=== PATIENT | female | born 1985 | race Caucasian/White ===

== ENCOUNTER 2017-05-20 15:35 | Emergency (ER) | payer OTHER, SELFPAY ==
[2017-05-20 15:36] VITALS: BP 123/73; PULSE 81; RESP 14; TEMP 37; O2SAT 98; BMI 27.4
[2017-05-20 17:22] LABS: Apearance,Urine Clear (Clear); Color,Urine Yellow (Yellow)
[2017-05-20 17:23] LABS: Bilirubin,Urine Negative (Negative); Blood, Urine Negative (Negative); Glucose,Urine (UA) Negative (Negative); Ketones,Urine Negative (Negative); Protein,Urine 3+ (Negative); Specific Gravity, Urine 1.015 (1.005-1.030); UTC Leukocyte Esterase,Urine Negative (Negative); UTC Nitrate,Urine Negative (Negative); Urobilinogen,Urine 0.2 EU/dl (0.2)
--- NOTE | 2017-05-20 17:29 | HMH.EDUTC ---
[facility] [place] Disposition Clinical Impression: URI (upper respiratory infection) Disposition: Home, Self-Care Condition on Discharge: Good Instructions: Cough, DI for Cough -- Adult, Sinusitis (Alternative Therapy) Additional Instructions: Follow up with family doctor Make sure to drink plenty of water Return if needed Take medication as prescribed Prescriptions: Azithromycin [Z-Luis 250mg Tab] 250 mg PO UD DOSE PK #6 tab predniSONE [Prednisone 10mg Tab Dose-Pack] 10 mg PO UD DOSE PK #1 pack Referrals: Jerry Juarez MD [Physician] - Burke Mae MD [Physician] - Time of Disposition: 17:51 Medical Decision Making - Medical Records Medical records reviewed: Yes: I reviewed the patient's medical records. Vital Signs: 05/20/17 15:36 Temperature 98.6 F Temperature Source Oral Pulse Rate [Left Brachial] 81 Respiratory Rate 14 Blood Pressure [Right Arm] 123/73 Blood Pressure Mean [Right Arm] 89 Blood Pressure Source [Right Arm] Automatic Cuff Blood Pressure Position [Right Arm] Sitting 02 Sat by Pulse Oximetry 98 Oxygen Delivery Method Room Air - Lab Data Lab Results 05/20/17 17:11: Urine Color Yellow, Urine Appearance Clear, Urine pH 9.0 H, Ur Specific [place] 1.015, Urine Protein 3+, Urine Glucose (UA) Negative, Urine Ketones Negative, Urine Blood Negative, Urine Nitrate Negative, Urine Bilirubin Negative, Urine Urobilinogen 0.2, Ur Leukocyte Esterase Negative - Myron Inquiry Pt receiving controlled substance: No Myron was queried for this patient: No - Reevaluation(s) Time: 17:44 (Patient UA results reviewed and discussed with patient and advised to drink more water ) [facility] HPI - General Stated complaint: possible bronchitis Mode of Arrival: Ambulatory Source of Information: Patient Limitations: No Limitations Description of Symptoms (Recalled from Triage Doc. by RN): COUGH, WHEEZING, EAR PAIN, POSS UTI HEENT Symptoms (Recalled from RN notes): No Resp Symptoms (Recalled from RN notes): No Skin Symptoms (Recalled from RN notes): No MS Symptoms (Recalled from RN notes): No Functional Status (Recalled from RN notes): NA - History of Present Illness Provider Complaint: Patient states that she has been having cough and chest congestion along with pain in ears States that she has not been eating and drinking that well and noticed that she had some burning wtih urination and wanted to have her urine checked also States that at times she has periods of wheezing but she already has an inhaler for that and she has not been short of breath - Related Data Previous Rx's Medication Instructions Recorded Azithromycin [Z-Luis 250mg Tab] 250 mg PO UD DOSE PK #6 tab 05/20/17 predniSONE [Prednisone 10mg Tab 10 mg PO UD DOSE PK #1 pack 05/20/17 Dose-Pack] Allergies Allergy/AdvReac Type Severity Reaction Status Date / Time No Known Allergies Allergy Verified 05/20/17 16:48 - Worker's Comp Is this a Worker's Comp case?: No [facility] History I have reviewed the patient's past medical history: Yes Medical History: Denies:: Cancer, Diabetes Mellitus Type 1, Diabetes Mellitus Type 2, MRSA Amputation: No Fractures: No - *Social History Smoking Status: Current every day smoker Tobacco Type: cigarettes Alcohol Intake: never - Psychiatric History Expresses thoughts of harming self/others: None Suicide Plan Description: No Plan ROS Obtained: Yes All systems reviewed & no additional complaints - Respiratory Respiratory: Yes cough, No excessive phlegm production, No coughing up blood, No pain with cough, Yes wheezing - Genitourinary Male Genitourinary: Reports urinary urgency Physical Exam - General General appearance: alert, in no apparent distress - Expanded ENT Exam Nose exam: Present: sinus tenderness Comment: Throat red, irritated drainage noted with tenderness noted maxillary sinuses - Respiratory Respiratory exam: Present: normal lung sounds bilaterally. Absent: re
--- NOTE | 2017-05-20 17:42 | ED_ITS ---
[facility] [place] Disposition Clinical Impression: URI (upper respiratory infection) Disposition: Home, Self-Care Condition on Discharge: Good Instructions: Cough, DI for Cough -- Adult, Sinusitis (Alternative Therapy) Additional Instructions: Follow up with family doctor Make sure to drink plenty of water Return if needed Take medication as prescribed Prescriptions: Azithromycin [Z-Luis 250mg Tab] 250 mg PO UD DOSE PK #6 tab predniSONE [Prednisone 10mg Tab Dose-Pack] 10 mg PO UD DOSE PK #1 pack Referrals: Jerry Juarez MD [Physician] - Burke Mae MD [Physician] - Time of Disposition: 17:51 Medical Decision Making - Medical Records Medical records reviewed: Yes: I reviewed the patient's medical records. Vital Signs: 05/20/17 15:36 Temperature 98.6 F Temperature Source Oral Pulse Rate [Left Brachial] 81 Respiratory Rate 14 Blood Pressure [Right Arm] 123/73 Blood Pressure Mean [Right Arm] 89 Blood Pressure Source [Right Arm] Automatic Cuff Blood Pressure Position [Right Arm] Sitting 02 Sat by Pulse Oximetry 98 Oxygen Delivery Method Room Air - Lab Data Lab Results 05/20/17 17:11: Urine Color Yellow, Urine Appearance Clear, Urine pH 9.0 H, Ur Specific [place] 1.015, Urine Protein 3+, Urine Glucose (UA) Negative, Urine Ketones Negative, Urine Blood Negative, Urine Nitrate Negative, Urine Bilirubin Negative, Urine Urobilinogen 0.2, Ur Leukocyte Esterase Negative - Myron Inquiry Pt receiving controlled substance: No Myron was queried for this patient: No - Reevaluation(s) Time: 17:44 (Patient UA results reviewed and discussed with patient and advised to drink more water ) [facility] HPI - General Stated complaint: possible bronchitis Mode of Arrival: Ambulatory Source of Information: Patient Limitations: No Limitations Description of Symptoms (Recalled from Triage Doc. by RN): COUGH, WHEEZING, EAR PAIN, POSS UTI HEENT Symptoms (Recalled from RN notes): No Resp Symptoms (Recalled from RN notes): No Skin Symptoms (Recalled from RN notes): No MS Symptoms (Recalled from RN notes): No Functional Status (Recalled from RN notes): NA - History of Present Illness Provider Complaint: Patient states that she has been having cough and chest congestion along with pain in ears States that she has not been eating and drinking that well and noticed that she had some burning wtih urination and wanted to have her urine checked also States that at times she has periods of wheezing but she already has an inhaler for that and she has not been short of breath - Related Data Previous Rx's Medication Instructions Recorded Azithromycin [Z-Luis 250mg Tab] 250 mg PO UD DOSE PK #6 tab 05/20/17 predniSONE [Prednisone 10mg Tab 10 mg PO UD DOSE PK #1 pack 05/20/17 Dose-Pack] Allergies Allergy/AdvReac Type Severity Reaction Status Date / Time No Known Allergies Allergy Verified 05/20/17 16:48 - Worker's Comp Is this a Worker's Comp case?: No [facility] History I have reviewed the patient's past medical history: Yes Medical History: Denies:: Cancer, Diabetes Mellitus Type 1, Diabetes Mellitus Type 2, MRSA Amputation: No Fractures: No - *Social History Smoking Status: Current every day smoker Tobacco Type: cigarettes Alcohol Intake: never - Psychiatric History Expresses thoughts of harming self/o
[2017-05-20 18:00] VITALS: BP 120/74; PULSE 85; RESP 14; TEMP 37; O2SAT 98
== END 2017-05-20 18:02 | disposition home or self-care (01) ==
PROVIDERS: Emergency Provider Nurse Practitioner; Family Provider Emergency Medicine
DX: J06.9 Acute upper respiratory infection, unspecified (principal)
CPT/HCPCS: 81003; 99201

== ENCOUNTER → 2017-12-14 15:23 | Outpatient (CLI) | payer OTHER, SELFPAY ==
--- NOTE | 2017-12-14 15:26 | NVE_ITS ---
Venous Exam Indications: 782.3 Edema. IMPRESSIONS 1. There is no evidence of significant Reflux. 2. No evidence of deep or superficial vein thrombosis involving the right lower extremity and left lower extremity History: Swelling of both lower extremities. Risk factors: Current tobacco use. Patient denies trauma. Patient states both her feet have been swollen for just a few days. She notices that the swelling seems worse when she first wakes in the morning. Complete lower extremity venous duplex evaluation. Doppler flow study including spectral analysis, color and healy scale imaging. Location: Vascular laboratory. Patient status: Outpatient. Tables: Venous flow and imaging: + +-------+ + Location Overall Flow properties + +-------+ + Right common femoral Patent Normal phasicity; spontaneous; normal augmentation; compressible + +-------+ + Right saphenofemoral junction Patent Compressible + +-------+ + Right profunda femoral Patent Compressible + +-------+ + Right femoral Patent Normal phasicity; spontaneous; normal augmentation; compressible; no reflux + +-------+ + Right greater saphenous Patent Normal phasicity; spontaneous; normal augmentation; compressible + +-------+ + Right popliteal Patent Normal phasicity; spontaneous; normal augmentation; compressible + +-------+ + Right posterior tibial Patent Compressible + +-------+ + Right peroneal Patent Compressible + +-------+ + Right gastrocnemius Patent Compressible + +-------+ + Right soleal Patent Compressible + +-------+ + Left common femoral Patent Normal phasicity; spontaneous; normal augmentation; compressible + +-------+ + Left saphenofemoral junction Patent Compressible + +-------+ + Left profunda femoral Patent Compressible + +-------+ + Left femoral Patent Normal phasicity; spontaneous; normal augmentation; compressible + +-------+ + Left greater saphenous Patent Normal phasicity; spontaneous;
== END ==
PROVIDERS: Family Provider Emergency Medicine; PCP Emergency Medicine; Visit Provider Internal Medicine Cardiovascular Disease
DX: R60.0 Localized edema (principal); M79.604 Pain in right leg; M79.605 Pain in left leg
CPT/HCPCS: 93970

== ENCOUNTER → 2017-12-20 14:25 | Outpatient (CLI) | payer OTHER, SELFPAY ==
--- NOTE | 2017-12-20 14:26 | CA_ITS ---
PROCEDURE: 2-D M-mode and color Doppler study INDICATIONS FOR THE TEST: Chest painX COPD Heart Murmur Tobacco Smoking PalpitationsX FatigueX Syncope EdemaX Hypertension Diabetes Mellitus Rheumatic Fever SOB MARINO Obesity Hyperlipidemia Family History HD Additional History DIZZINESS PATIENT INFORMATION HEIGHT: 66 WEIGHT:179 GENDER: Female B/P:126/67 2-D/M-MODE INTERPRETATION: 2-D MEASUREMENTS OBSERVED VALUES IN CMS Right Ventricular Dimension (RVDd) 2.2 Interventricular Septum (Thickness)(IVsd) .7 Left Ventricular Internal Dimensions(LVIDd) 4.3 Left Ventricular Posterior Wall (Thickness)(LVPWd) .8 Aortic Root 2.8 Aortic Cusp Separation 1.7 Left Atrial Dimensions (LAD) 2.2 2D 1. Left atrium is normal size, left ventricle is normal size, there is no concentric left ventricular hypertrophy, visually estimated ejection fraction 55% with no obvious regional wall motion abnormality. 2. The right atrium and right ventricle are normal size and contractility. 3. The aortic, mitral and tricuspid valvular grossly normal. 4. The pulmonic valve is poorly visualized. 5. No significant pericardial effusion noted. DOPPLER INTERROGATION: Doppler interrogation of the aortic, mitral and tricuspid valvular presence of mild mitral and tricuspid regurgitation, calculated right ventricular systolic pressure is within normal range. Diastolic parameters are normal CONCLUSION: 1. Normal left ventricular size, preserved left ventricular systolic function, visually estimated ejection fraction 55% with no obvious regional wall motion abnormality, diastolic parameters are within normal range. 2. Mild mitral and tricuspid regurgitation, calculated right ventricular systolic pressure is within normal range. 3. No significant pericardial effusion noted.
== END ==
PROVIDERS: Family Provider Emergency Medicine; PCP Emergency Medicine; Visit Provider Internal Medicine Cardiovascular Disease
DX: R00.2 Palpitations (principal); R42 Dizziness and giddiness
CPT/HCPCS: 93306

== ENCOUNTER → 2018-09-03 13:37 | Outpatient (CLI) | payer OTHER, SELFPAY ==
[2018-09-03 14:25] LABS: T4 (Thyroxine) 10.9 ug/dl (4.7-13.3); Thyroid Stimulating Hormone 1.56 uIU/ml (0.358-3.740)
[2018-09-04 06:08] LABS: Vitamin D 25 Hydroxy 17.2 ng/mL (30.0-100.0)
== END ==
PROVIDERS: Visit Provider Nurse Practitioner Family
DX: R53.83 Other fatigue (principal)
CPT/HCPCS: 82652; 84436; 84443

== ENCOUNTER 2020-06-09 13:39 | Emergency (ER) | payer OTHER, SELFPAY ==
[2020-06-09 13:58] VITALS: BP 156/99; PULSE 104; RESP 16; TEMP 36.6; O2SAT 100; BMI 31.6
--- NOTE | 2020-06-09 14:24 | HMH.EDUTC ---
[facility] [place] Clinical Impression: Conjunctivitis, right eye Qualifiers: Conjunctivitis type: acute Acute conjunctivitis type: unspecified Qualified Code(s): H10.31 - Unspecified acute conjunctivitis, right eye Disposition: Home, Self-Care Condition on Discharge: Good Instructions: Conjunctivitis, DI for Conjunctivitis Additional Instructions: Dr. Kenny is going to see you at the [facility] today at 3:30 pm. They said for you to arrive at the parking lot and call in to let them know you are there. Follow up with your primary care doctor. GO TO THE ER FOR ANY WORSENING SYMPTOMS OR CONCERNS, ESPECIALLY ANY PAIN OR VISION CHANGES. Referrals: Carlos Enrique Simmons MD [Primary Care Provider] - Forms: Work/School Release Time of Disposition: 14:59 Medical Decision Making - Medical Records Medical records reviewed: No: I reviewed the patient's medical records. - Myron Inquiry Pt receiving controlled substance: No Vital Signs: 06/09/20 13:58 06/09/20 15:03 Temperature 97.9 F 97.5 F L Temperature Source Tympanic Tympanic Pulse Rate 102 H Pulse Rate [Right] 104 H Respiratory Rate 16 14 Blood Pressure 156/90 H Blood Pressure [Right Arm] 156/99 H Blood Pressure Mean [Right Arm] 118 Blood Pressure Source [Right Arm] Automatic Cuff Blood Pressure Position [Right Arm] Sitting 02 Sat by Pulse Oximetry 100 Oxygen Delivery Method Room Air Medical Decision Narrative: I called Dr. Kenny (opthalmology) regarding this patient. She is to be seen by him at his office today at 1530. [facility] [place] - General Stated complaint: swollen Rt eye Time Seen by Provider: 06/09/20 14:24 Mode of Arrival: Ambulatory Source of Information: Patient Limitations: No Limitations Description of Symptoms (Recalled from Triage Doc. by RN): pt seen at [facility] for right eye swelling on 06/02. they gave her eye drops with little to no improvement. pt thinks it may be getting into left eye as well. HEENT Symptoms (Recalled from RN notes): Yes (swollen right eye) Resp Symptoms (Recalled from RN notes): No Skin Symptoms (Recalled from RN notes): No MS Symptoms (Recalled from RN notes): No Functional Status (Recalled from RN notes): na - History of Present Illness Provider Complaint: She states that she was saw last week at the [facility] clinic in [facility]. She was diagnosed with conjunctivitis and started on bleph-10 eye drops. She states that since then she has used the drops as directed but her symptoms have not got better. She continues to have eye discomfort, redness and discharge. - Related Data Home Medications Medication Instructions Recorded Confirmed venlafaxine 150 mg 225 mg PO DAILY cap 06/05/18 06/05/20 capsule,extended release 24 hr lamotrigine 200 mg tablet mg PO 06/05/20 06/05/20 Previous Rx's Medication Instructions Recorded sulfacetamide sodium 10 % eye drops 2 drp OPHTHALMIC QID 7 Days #15 ml 06/05/20 Allergies Allergy/AdvReac Type Severity Reaction Status Date / Time No Known Allergies Allergy Verified 06/05/20 12:37 - Worker's Comp Is this a Worker's Comp case?: No [facility] History - Hepatitis A Screen Drug use history?: No High risk sexual behaviors?: No History of sexually transmitted infection?: No Currently employed?: No Childcare worker?: No Do you have indoor plumbing?: Yes Do you have electricity?: Yes Attestation statement:: This patient has been screened for Hepatitis A risk factors. I have reviewed the patient's past medical history: Yes Medical History: Reports:: Depression, Palpitations Denies:: Cancer, Diabetes Mellitus Type 1, Diabetes Mellitus Type 2, Hypertension, MRSA Other Medical History: Reports: Other Other Surgeries: Yes: Appendectomy, Tubal Ligation Amputation: No Fractures: No - Social History Smoking Status: Current every day smoker Tobacco Type: cigarettes # Packs/Day (cigarettes): 1 Alcohol Intake: never Alcohol Intake Frequency
[2020-06-09 15:03] VITALS: BP 156/90; PULSE 102; RESP 14; TEMP 36.4
== END 2020-06-09 15:04 | disposition home or self-care (01) ==
PROVIDERS: Emergency Provider Nurse Practitioner Family; PCP Emergency Medicine
DX: H10.31 Unspecified acute conjunctivitis, right eye (principal); F33.1 Major depressive disorder, recurrent, moderate; R00.2 Palpitations; F17.210 Nicotine dependence, cigarettes, uncomplicated; Z79.899 Other long term (current) drug therapy
CPT/HCPCS: 99202; G0463

== ENCOUNTER → 2020-07-21 17:34 | Outpatient (CLI) | payer OTHER, SELFPAY ==
[2020-07-25 04:32] LABS: Neisseria gonorrhoeae, NAA Negative (Negative)
== END ==
PROVIDERS: Visit Provider Nurse Practitioner Obstetrics & Gynecology
DX: Z72.51 High risk heterosexual behavior (principal)
CPT/HCPCS: 87491; 87591

== ENCOUNTER 2021-01-26 12:00 | Emergency (ER) | payer OTHER, SELFPAY ==
[2021-01-26 12:09] VITALS: BP 131/89; PULSE 91; RESP 18; TEMP 36.9; O2SAT 100; BMI 30.2
--- NOTE | 2021-01-26 12:15 | XR_ITS ---
PROCEDURE: XR WRIST RT MIN 3V CLINICAL INDICATION: FELT IT POP OUT OF PLACE WHEN SHE LIFTED A BOX COMPARISON: No exams were available for comparison FINDINGS: No fracture or dislocation. No lytic or blastic change. There is normal mineralization. The joint spaces are well-preserved. No significant degenerative/arthritic changes. No erosive changes evident. Other findings:None. IMPRESSION: No acute findings. Dictated by: Camden Rodriguez MD 01/26/2021 12:24 Camden Rodriguez MD in [place] 01/26/2021 12:24
--- NOTE | 2021-01-26 12:38 | HMH.EDUTC ---
[facility] [place] Disposition Clinical Impression: Wrist sprain Qualifiers: Encounter type: initial encounter Laterality: right Qualified Code(s): S63.501A - Unspecified sprain of right wrist, initial encounter Disposition: Home, Self-Care Condition on Discharge: Good Instructions: Wrist Sprain, DI for Wrist Sprain, How To Perform RICE (Rest, Ice, Compress, Elevate) Additional Instructions: *RICE, Rest the extremity, Ice 15-20 minutes 3-4 times daily, Compress- wear the angel wrap as discussed as much as possible to help reduce swelling and pain, Elevate the extremity when at rest *Angel wrap is for support and help control swelling, use it except in the shower. Be sure that is not to tight but not to loose either *Elevate when resting *Ibuprofen as directed on package as needed for pain an inflammation. If need something more can take Tylenol in between doses of Ibuprofen to help Immediately follow up with your family doctor for new or worsening of symptoms, or no noticeable improvement over the next 3-5 days Return if needed Straight to ER if any life threatening symptoms Referrals: Carlos Enrique Simmons MD [Primary Care Provider] - As needed Forms: Work/School Release Time of Disposition: 12:43 Medical Decision Making - Myron Inquiry Pt receiving controlled substance: No Myron was queried for this patient: No Vital Signs: 01/26/21 12:09 01/26/21 12:39 Temperature 98.4 F 98.4 F Temperature Source Oral Pulse Rate 91 H Pulse Rate [Left] 91 H Respiratory Rate 18 18 Blood Pressure 131/89 Blood Pressure [Right Arm] 131/89 Blood Pressure Mean [Right Arm] 103 02 Sat by Pulse Oximetry 100 - Radiology Data #1 Image(s): Wrist Image Reviewed: Yes I have reviewed radiologist's interpretation IMPRESSION: No acute findings. [facility] HPI - General Stated complaint: swollen right wrist Time Seen by Provider: 01/26/21 12:38 Mode of Arrival: Ambulatory Source of Information: Patient Limitations: No Limitations Description of Symptoms (Recalled from Triage Doc. by RN): pt picked up a box yesterday and felt a pop in her R wrist. pt is still having pain. HEENT Symptoms (Recalled from RN notes): No Resp Symptoms (Recalled from RN notes): No Skin Symptoms (Recalled from RN notes): No MS Symptoms (Recalled from RN notes): Yes (R wrist pain) Functional Status (Recalled from RN notes): na - History of Present Illness Provider Complaint: Patient states that she was at work yesterday when she was lifting a heavy box and felt something pop in her right wrist States that she dropped the box and it popped again State that ever since she has been having some swelling and pain when she moves it so she came in to get it checked - Related Data Home Medications Medication Instructions Recorded Confirmed venlafaxine 150 mg 225 mg PO DAILY cap 06/05/18 07/21/20 capsule,extended release 24 hr lamotrigine 200 mg tablet mg PO 06/05/20 07/21/20 buspirone 15 mg tablet 15 mg PO tab 07/21/20 07/21/20 quetiapine 50 mg tablet 50 mg PO tab 07/21/20 07/21/20 Previous Rx's Medication Instructions Recorded azithromycin 250 mg tablet See Rx Instructions PO .COMPLEX #6 07/21/20 tab Allergies Allergy/AdvReac Type Severity Reaction Status Date / Time No Known Allergies Allergy Verified 07/21/20 13:50 - Worker's Comp Is this a Worker's Comp case?: No [facility] History - Hepatitis A Screen Drug use history?: No High risk sexual behaviors?: No History of sexually transmitted infection?: No Currently employed?: No Childcare worker?: No Do you have indoor plumbing?: Yes Do you have electricity?: Yes Attestation statement:: This patient has been screened for Hepatitis A risk factors. I have reviewed the patient's past medical history: Yes Medical History: Reports:: Depression, Palpitations Denies:: Cancer, Diabetes Mellitus Type 1, Diabetes Mellitus Type 2, Hypertension, MRSA Other Medical History: Reports: Other O
[2021-01-26 12:39] VITALS: BP 131/89; PULSE 91; RESP 18; TEMP 36.9
== END 2021-01-26 12:54 | disposition home or self-care (01) ==
PROVIDERS: Emergency Provider Nurse Practitioner; PCP Emergency Medicine
DX: S63.501A Unspecified sprain of right wrist, initial encounter (principal); X50.0XXA Overexertion from strenuous movement or load, initial encounter; Y92.69 Other specified industrial and construction area as the place of occurrence of the external cause; Y99.0 Civilian activity done for income or pay
CPT/HCPCS: 29125; 73110; 99202; G0463

== ENCOUNTER 2022-02-28 09:36 | Emergency (ER) | payer OTHER, SELFPAY ==
--- NOTE | 2022-02-28 10:26 | EXP.UTC ---
Discharge Plan Disposition Patient Disposition: Home, Self-Care Condition: Good Prescriptions Prescriptions: New benzonatate [benzonatate] 100 mg capsule 100 mg PO TIDP PRN (Reason: Cough) Qty: 30 0RF amoxicillin-pot clavulanate 500-125 mg tablet 1 tab PO BID Qty: 20 0RF methylprednisolone 4 mg Tablets,Dose Pack 4 mg PO DIRECTED Qty: 21 0RF No Action venlafaxine [Effexor XR] 150 mg capsule,extended release 24hr 225 mg PO DAILY lamotrigine 200 mg tablet PO quetiapine 50 mg tablet 50 mg PO buspirone 15 mg tablet 15 mg PO azithromycin 250 mg tablet See Rx Instructions PO .COMPLEX Qty: 6 0RF Rx Instructions: take 500 mg today (day 1), then 250 mg for 4 days (days 2-5) PO Referrals Follow up/Referrals: Carlos Enrique Simmons MD [Primary Care Provider] - See instructions Activity Restrictions/Add. Instructions Additional Instructions/Restrictions: Drink plenty of fluids. Take tylenol or ibuprofen for pain or fever. Take the medications as directed. Follow up with your regular doctor. GO TO THE ER FOR ANY WORSENING SYMPTOMS Clinical Impressions Clinical Impression: Otitis media Stand Alone Forms Stand Alone Forms: Work/School Release Instructions Patient Instructions: Middle Ear Infection, Methylprednisolone, Amoxicillin and Clavulanic Acid Discharge ED Provider: Rj Jackson [facility] General Stated complaint: Left ear ache Time Seen by Provider: 02/28/22 10:26 History of Present Illness Provider Complaint: She c/o left ear pain for the past 5 days. She has had sinus congestion and runny nose also. Related Data Home Medications Medication Instructions Recorded Confirmed venlafaxine 150 mg 225 mg PO DAILY 06/05/18 07/21/20 capsule,extended release 24 hr (Effexor XR) lamotrigine 200 mg tablet mg PO 06/05/20 07/21/20 buspirone 15 mg tablet 15 mg PO 07/21/20 07/21/20 quetiapine 50 mg tablet 50 mg PO 07/21/20 07/21/20 Previous Rx's Medication Instructions Recorded azithromycin 250 mg tablet See Rx Instructions PO .COMPLEX #6 07/21/20 tabs amoxicillin 500 mg-potassium 1 tab PO BID #20 tabs 02/28/22 clavulanate 125 mg tablet benzonatate 100 mg capsule 100 mg PO TIDP PRN Cough #30 caps 02/28/22 methylprednisolone 4 mg tablets in 4 mg PO DIRECTED #21 tabs 02/28/22 a dose pack Allergies Allergy/AdvReac Type Severity Reaction Status Date / Time No Known Allergies Allergy Verified 07/21/20 13:50 [facility] Medical History Anxiety Depression Surgical History History of appendectomy History of tubal ligation Social History Smoking Status: Current every day smoker tobacco type: cigarettes packs per day: 1 second hand exposure: Yes alcohol intake: never substance use type: denies use current occupational status: employed Travel in the last 8 weeks: None household members: family housing: house ROS Obtained: Yes All systems reviewed & no additional complaints except as documented Constitutional Constitutional: Reports chills and Reports fever(s) Eyes Eyes: Denies eye discharge ENT Ears, Nose, Mouth, and Throat: Reports as per HPI Cardiovascular Cardiovascular: Denies chest pain Respiratory Respiratory: Denies shortness of breath, Reports chest congestion, Reports cough, Denies stridor and Denies wheezing Gastrointestinal Gastrointestingal: Reports nausea; Denies abdominal pain, constipation, cramping, diarrhea or vomiting Musculoskeletal Musculoskeletal: Denies arthralgias Integumentary/Breasts Skin/Breast: Denies rash Neurologic Neurologic: Denies paresthesias Allergic/Immunologic Allergic/Immunologic: Denies wheezing Physical Exam General General appearance: alert and in no apparent distress Head Head exam: atraumati
[2022-02-28 10:30] VITALS: BP 146/89; PULSE 114; RESP 20; TEMP 36.8; O2SAT 96; BMI 31.1
[2022-02-28 10:56] VITALS: BP 146/89; PULSE 114; RESP 20; TEMP 36.8; O2SAT 96
== END 2022-02-28 11:02 | disposition home or self-care (01) ==
PROVIDERS: Emergency Provider Nurse Practitioner Family; PCP Emergency Medicine
DX: H66.92 Otitis media, unspecified, left ear (principal); R50.9 Fever, unspecified; R09.81 Nasal congestion; F32.A Depression, unspecified; F41.9 Anxiety disorder, unspecified; F17.210 Nicotine dependence, cigarettes, uncomplicated; Z79.899 Other long term (current) drug therapy
CPT/HCPCS: 99212; G0463

== ENCOUNTER → 2022-11-17 07:59 | Outpatient (CLI) | payer OTHER, SELFPAY ==
[2022-11-17 09:45] LABS: Amphetamine/Metha Screen,Urine Negative ng/ml (<1000)
[2022-11-17 09:46] LABS: Barbiturates Screen,Urine Negative ng/ml (<200); Benzodiazepines Screen,Urine Negative ng/ml (<200)
[2022-11-17 09:47] LABS: Cannabinoid Screen,Urine Negative ng/ml (<50); Cocaine Screen,Urine Negative ng/ml (<300)
[2022-11-17 09:48] LABS: Methadone Screen,Urine Negative ng/ml (<300)
[2022-11-17 09:49] LABS: Opiate Screen,Urine Negative ng/ml (<300)
[2022-11-17 09:50] LABS: Phencyclidine Screen,Urine Negative ng/ml (<25)
== END ==
PROVIDERS: Visit Provider Nurse Practitioner Psychiatric/Mental Health
DX: Z02.83 Encounter for blood-alcohol and blood-drug test (principal)
CPT/HCPCS: 80305

== ENCOUNTER 2024-04-22 11:44 | Emergency (ER) | payer SELFPAY ==
[2024-04-22 11:45] VITALS: BP 159/93; PULSE 97; RESP 16; TEMP 37; O2SAT 99; BMI 31.2
--- NOTE | 2024-04-22 12:13 | HMH.EDGENADL ---
Discharge Plan Disposition Patient Disposition: Home, Self-Care Condition: Good Prescriptions Prescriptions: New metronidazole 500 mg tablet 500 mg PO BID 14 Days Qty: 28 0RF cefdinir 300 mg capsule 300 mg PO BID 10 Days Qty: 20 0RF doxycycline hyclate 100 mg capsule 100 mg PO BID 14 Days Qty: 28 0RF No Action lamotrigine 200 mg tablet 200 mg PO DAILY Qty: 90 1RF venlafaxine 150 mg capsule,extended release 24hr 150 mg PO DAILY Qty: 90 1RF Referrals Follow up/Referrals: Provider,Referral, MD [Primary Care Provider] - See instructions Activity Restrictions/Add. Instructions Additional Instructions/Restrictions: Please take all of the medications that you are prescribed until they are gone. Not skip doses, do not stop taking them early. Follow-up with your PCP next week for recheck. Please also make an appointment with OB for reevaluation in the next few days. Avoid any sexual intercourse until you have completed all antibiotics and been cleared of STD. Return to the ER for any worsening signs or symptoms as needed. Clinical Impressions Clinical Impression: Trichomoniasis Urinary tract infection Qualifiers: Urinary tract infection type: site unspecified Hematuria presence: with hematuria Qualified Code(s): N39.0 - Urinary tract infection, site not specified Instructions Patient Instructions: DI for Urinary Tract Infection (UTI), DI for Trichomoniasis Print Language Print Language: Danish Discharge ED Provider: Teddy Salazar General Adult HPI <GRACIELA Morgan - Last Filed: 04/22/24 14:13> General Chief complaint: Abdominal Pain Stated complaint: Adominal pain Time Seen by Provider: 04/22/24 12:01 History of Present Illness HPI narrative: Patient presents for evaluation of acute abdominal pain. Patient states that she has had issues with constipation in the past however she began having acute primarily left-sided abdominal pain starting yesterday. It has been persistent and nonstop since then. Patient has passed flatus but no bowel movement. She is not intolerant of oral intake and has been able to eat and drink today. She denies subjective fever chest pain shortness of breath hemoptysis hematochezia melena hematemesis hematuria. Related Data Previous Rx's ?Medication ?Instructions ?Recorded lamotrigine 200 mg tablet 200 mg PO DAILY #90 tabs 03/05/24 venlafaxine 150 mg 150 mg PO DAILY #90 caps 03/05/24 capsule,extended release 24 hr cefdinir 300 mg capsule 300 mg PO BID 10 days #20 caps 04/22/24 doxycycline hyclate 100 mg capsule 100 mg PO BID 14 days #28 caps 04/22/24 metronidazole 500 mg tablet 500 mg PO BID 14 days #28 tabs 04/22/24 Allergies Allergy/AdvReac Type Severity Reaction Status Date / Time No Known Allergies Allergy Verified 03/26/24 09:47 ON LICENSE OF [facility] <GRACIELA Morgan - Last Filed: 04/22/24 14:13> ON LICENSE OF [facility] Disclaimer: The information contained in this section may have been updated after the patient was seen, as this information can be updated by other users. Medical History Anxiety Depression Grief at loss of child Surgical History History of appendectomy History of tubal ligation Social History (Updated 12/29/22 @ 08:38 by ANGEL Jacobo) Smoking Status: Former smoker tobacco type: e-cigarettes second hand exposure: Yes alcohol intake: never counseling given: No substance use type: denies use current occupational status: employed Travel in the last 8 weeks: None adopted: No caregiver/support person: No foster care: No household members: family housing: house lives independently: Yes marital status: single number of children: 3 number of grandchildren: 0 education level: high school Hx Recent Travel: No sexually active: No caffeine: Yes physical activity: none jaycob/anabaptism: None special jaycob needs: No working smoke detector in home: Yes fire extinguisher in home: No carbon monox detector in home: No firearms in home: No do you feel safe at home: Yes victim of physical abuse: No victim of emotional abuse: No victim of sexual abuse: No would you like helpful sources: No Have you lived/traveled outside [place] in past 30 days?: No Contact w/someone who lives/traveled outside US past 30 days?: No Exposure to someone with infectious disease in past 14 days?: No Do you have a fever (greater than 100.4 F or 38 C)?: No Have you tested positive for COVID-19: No Exposed to someone with COVID-19 in past 14 days?: No Do you have a sore throat?: No Do you have a cough?: No Do you have any weakness?: No Do you have any diarrhea?: No Are you experiencing any unusual bleeding?: No Do you have any muscle aches/pain?: No Do you have any abdominal pain?: No Are you experiencing loss of taste or smell?: No Other Medical History Have you received the Flu Vaccine for this season: No Have you received the Pneumonia Vaccine: No <GRACIELA Morgan - Last Filed: 04/22/24 14:13> ROS Obtained: Yes Systems reviewed as appropriate & no additional complaints except as documented Physical Exam <GRACIELA Morgan - Last Filed: 04/22/24 14:13> General General appearance: alert and in no apparent distress Neck Neck exam: Present lymphadenopathy Respiratory Respiratory exam: Present normal lung sounds bilaterally and accessory muscle use Cardiovascular Cardiovascular exam: Present regular rate Neurological Exam Neurological exam: Present alert and oriented X3 Medical Decision Making <GRACIELA Morgan - Last Filed: 04/22/24 14:13> Medical Records Medical records reviewed: Yes I reviewed the patient's medical records. Screening: Per USPSTF and CDC recommendations, given the prevalence of disease in our region, it is our hospital?s policy to screen for HIV and viral Hepatitis for all patients aged 18 and over and those with ongoing risk factors. Myron Inquiry Pt receiving controlled substance: No Vital Signs: 04/22/24 11:45 04/22/24 12:30 04/22/24 12:35 Temperature 98.6 F Temperature Source Oral Pulse Rate 90 91 H Pulse Rate [Left Radial] 97 H Respiratory Rate 16 Blood Pressure 120/83 136/84 Blood Pressure [Right Arm] 159/93 H Blood Pressure Mean [Right Arm] 115 Blood Pressure Source Blood Pressure Source [Right Arm] Automatic Cuff Blood Pressure Position Blood Pressure Position [Right Arm] Sitting 02 Sat by Pulse Oximetry 99 100 100 Oxygen Delivery Method Room Air 04/22/24 13:00 04/22/24 14:00 04/22/24 14:05 Temperature 98.1 F Temperature Source Oral Pulse Rate 78 50 L 79 Pulse Rate [Left Radial] Respiratory Rate 18 Blood Pressure 117/73 114/79 114/79 Blood Pressure [Right Arm] Blood Pressure Mean [Right Arm] Blood Pressure Source Automatic Cuff Blood Pressure Source [Right Arm] Blood Pressure Position Sitting Blood Pressure Position [Right Arm] 02 Sat by Pulse Oximetry 98 89 L Oxygen Delivery Method Room Air Room Air Lab Data Lab results reviewed: Yes I reviewed the patient's lab results. Lab Results 04/22/24 12:07: WBC 9.0, RBC 4.02 L, Hgb 12.8, Hct 36.6 L, MCV 91.0, MCH 31.8 H, MCHC 35.0, RDW 11.6, Plt Count 347, MPV 9.0, Neut % (Auto) 78.0, Lymph % (Auto) 16.6, Canadian % (Auto) 3.8, Eos % (Auto) 1.1, Baso % (Auto) 0.2, Neut # (Auto) 7.0, Lymph # (Auto) 1.5, Canadian # (Auto) 0.3, Eos # (Auto) 0.1, Baso # (Auto) 0.0, Sodium 134 L, Potassium 4.1, Chloride 106, Carbon Dioxide 24, Anion Gap 8.1, BUN 12, Creatinine 0.70, Estimated Creat Clear 139, Estimated GFR 93, Est GFR ( Amer) 112, Glucose 125 H, Lactate 1.2, Calcium 9.3, Magnesium 2.0, Total Bilirubin 0.4, AST 29, ALT 21, Alkaline Phosphatase 75, Total Protein 7.9, Albumin 4.7, Globulin 3.2, Albumin/Globulin Ratio 1.5, Lipase 29, Serum HCG, Qual Negative 04/22/24 12:32: Urine Color Yellow, Urine Appearance Sl cloudy, Urine pH 7.0, Ur Specific [place] 1.010, Urine Protein Negative, Urine Glucose (UA) Negative, Urine Ketones Trace, Urine Blood 2+ A, Urine Nitrate Negative, Urine Bilirubin Negative, Urine Urobilinogen 0.2, Ur Leukocyte Esterase 3+ A, Urine RBC Occasional, Urine WBC 5-10, Ur Squamous Epith Cells 5-10, Urine Bacteria Trace, Urine Trichomonas 1+ 04/22/24 12:07 04/22/24 12:07 Orders (Tests/Meds): ED MEDICATIONS Discontinued Medications Generic Name Dose Route Start Last Admin Trade Name Freq PRN Reason Stop Dose Admin Acetaminophen 1,000 mg 04/22/24 12:15 04/22/24 12:28 Acetaminophen 1,000mg/100ml Vial IV 04/22/24 12:16 1,000 mg ONCE ONE Administration Doxycycline Hyclate 100 mg 04/22/24 13:40 04/22/24 13:56 Doxycycline Hycl 100 Mg Tablet PO 04/22/24 13:41 100 mg ONCE ONE Administration Sodium Chloride 1,000 mls @ 999 mls/hr 04/22/24 12:15 04/22/24 12:28 Sod Chlor 0.9% 1000ml Bag IV 04/22/24 13:15 999 mls/hr .Q1H1M ONE Administration Ceftriaxone Sodium 1 gm/ 50 mls @ 100 mls/hr 04/22/24 13:30 04/22/24 13:56 Sodium Chloride IV 05/02/24 13:29 100 mls/hr Q24H CARLOS Administration Iopamidol 75 ml 04/22/24 12:48 Iopamidol-370 (76%);100ml Bottle IV 04/22/24 12:49 ONCE ONE Ketorolac Tromethamine 15 mg 04/22/24 12:15 04/22/24 12:31 Ketorolac 30mg/Ml Vial IV 04/22/24 12:16 15 mg ONCE ONE Administration Metronidazole 500 mg 04/22/24 13:39 04/22/24 13:56 Metronidazole 500 Mg Tablet PO 04/22/24 13:40 500 mg ONCE ONE Administration Ondansetron HCl 4 mg 04/22/24 12:15 04/22/24 12:31 Ondansetron 4mg/2ml Vial IV 04/22/24 12:16 4 mg ONCE ONE Administration Sodium Chloride 10 ml 04/22/24 12:48 Sodium Chloride 0.9% 10ml Syr (Rad Only) IV 04/22/24 12:49 ONCE ONE ORDERS Category Date Time Status CT abdomen pelvis w con Stat Cat Scan 04/22/24 12:15 Completed CBC w/Auto Diff [Complete Blood Count Auto Diff] Stat Lab 04/22/24 12:07 Completed CMP [Comprehensive Metabolic Panel] Stat Lab 04/22/24 12:07 Completed HCG Qualitative, Serum Stat Lab 04/22/24 12:07 Completed Lactic Acid Stat Lab 04/22/24 12:07 Completed Lipase Stat Lab 04/22/24 12:07 Completed Magnesium Stat Lab 04/22/24 12:07 Completed UA [Urinalysis and Microscopic] Stat Lab 04/22/24 12:32 Completed Urine Culture Stat Micro 04/22/24 12:32 Received Medical Decision Narrative: In summary patient is a 39-year-old female who presents to the emergency department for evaluation of acute abdominal pain. Patient is hemodynamically stable upon arrival, afebrile. Physical exam is remarkable for diffuse abdominal tenderness but left greater than right without rebound or guarding or rigidity. Bowel sounds normal active.. Differential diagnosis includes UTI versus kidney stone versus diverticulitis versus colitis versus constipation versus infection etc. Initial workup will be conducted with hematologic labs CT scan abdomen pelvis urinalysis.. Initial interventions include crystalloid bolus Toradol Tylenol Zofran. Initial workup reviewed by me shows her hematologic labs are nonactionable however her urinalysis is positive for trace ketones 2+ blood nitrite negative leukocyte Estrace positive with microscopic exam showing occasional red blood cells 5-10 whites 5-10 epithelial cells trace bacteria and +1 trichomonas. My informal interpretation of her CT scan abdomen pelvis shows no acute processes prior to radiology read. Upon repeat evaluation patient had some improvement in her discomfort after initial interventions. She is tolerating oral intake. Given this patient is appropriate for discharge at this time and will be discharged with a prescription for 14 days of Flagyl, and doxycycline, 10 days of Omnicef and received a dose of IV Rocephin in the emergency department. First doses of her oral antibiotics were given in the ER. Patient needs to follow-up with [facility] next week and was personally told about the follow-up needed. I personally evaluated the patient. She is resting comfortably at this time and is reassured by the workup so far. I discussed CT results which are reassuring. Her labs are concerning for urinary tract infection as well as possible STI with presence of trichomonas. On further discussion with her, she denies dyspareunia with most recent sexual encounter 2 weeks ago. She states she has had trichomonas in the past. She states she has not had any recent STD testing. She states her abdominal pain was new in the last 24 to 48 hours which is reassuring against PID but does not completely rule it out. She also has absent dyspareunia which again is reassuring against PID but does not rule it out. Given this and her symptoms as well as the presence of trichomonas, I believe it is most beneficial to treat the patient for pelvic inflammatory disease as well as urinary tract infection with possible pyelonephritis. Her labs and imaging are overall reassuring enough I believe this can be done on an outpatient basis. She received IV Rocephin in the ER. She is being prescribed cefdinir, doxycycline, and metronidazole for treatment of the listed concerns. She was also instructed to follow-up with OB for reevaluation and to notify any sexual partners of potential contact. She is appropriate for discharge. I was consulted by the JENIFER, and we discussed the complexity of problems being addressed. I approved the treatment and management plan for this patient's care in the emergency department, thus performing a substantial portion of the medical decision making. Teddy Salazar MD <Teddy Salazar MD - Last Filed: 04/22/24 14:50> Vital Signs: 04/22/24 11:45 04/22/24 12:30 04/22/24 12:35 Temperature 98.6 F Temperature Source Oral Pulse Rate 90 91 H Pulse Rate [Left Radial] 97 H Respiratory Rate 16 Blood Pressure 120/83 136/84 Blood Pressure [Right Arm] 159/93 H Blood Pressure Mean [Right Arm] 115 Blood Pressure Source Blood Pressure Source [Right Arm] Automatic Cuff Blood Pressure Position Blood Pressure Position [Right Arm] Sitting 02 Sat by Pulse Oximetry 99 100 100 Oxygen Delivery Method Room Air 04/22/24 13:00 04/22/24 14:00 04/22/24 14:05 Temperature 98.1 F Temperature Source Oral Pulse Rate 78 50 L 79 Pulse Rate [Left Radial] Respiratory Rate 18 Blood Pressure 117/73 114/79 114/79 Blood Pressure [Right Arm] Blood Pressure Mean [Right Arm] Blood Pressure Source Automatic Cuff Blood Pressure Source [Right Arm] Blood Pressure Position Sitting Blood Pressure Position [Right Arm] 02 Sat by Pulse Oximetry 98 89 L Oxygen Delivery Method Room Air Room Air Lab Data Lab Results 04/22/24 12:07: WBC 9.0, RBC 4.02 L, Hgb 12.8, Hct 36.6 L, MCV 91.0, MCH 31.8 H, MCHC 35.0, RDW 11.6, Plt Count 347, MPV 9.0, Neut % (Auto) 78.0, Lymph % (Auto) 16.6, Canadian % (Auto) 3.8, Eos % (Auto) 1.1, Baso % (Auto) 0.2, Neut # (Auto) 7.0, Lymph # (Auto) 1.5, Canadian # (Auto) 0.3, Eos # (Auto) 0.1, Baso # (Auto) 0.0, Sodium 134 L, Potassium 4.1, Chloride 106, Carbon Dioxide 24, Anion Gap 8.1, BUN 12, Creatinine 0.70, Estimated Creat Clear 139, Estimated GFR 93, Est GFR ( Amer) 112, Glucose 125 H, Lactate 1.2, Calcium 9.3, Magnesium 2.0, Total Bilirubin 0.4, AST 29, ALT 21, Alkaline Phosphatase 75, Total Protein 7.9, Albumin 4.7, Globulin 3.2, Albumin/Globulin Ratio 1.5, Lipase 29, Serum HCG, Qual Negative 04/22/24 12:32: Urine Color Yellow, Urine Appearance Sl cloudy, Urine pH 7.0, Ur Specific [place] 1.010, Urine Protein Negative, Urine Glucose (UA) Negative, Urine Ketones Trace, Urine Blood 2+ A, Urine Nitrate Negative, Urine Bilirubin Negative, Urine Urobilinogen 0.2, Ur Leukocyte Esterase 3+ A, Urine RBC Occasional, Urine WBC 5-10, Ur Squamous Epith Cells 5-10, Urine Bacteria Trace, Urine Trichomonas 1+ Orders (Tests/Meds): ED MEDICATIONS Discontinued Medications Generic Name Dose Route Start Last Admin Trade Name Zahira PRN Reason Stop Dose Admin Acetaminophen 1,000 mg 04/22/24 12:15 04/22/24 12:28 Acetaminophen 1,000mg/100ml Vial IV 04/22/24 12:16 1,000 mg ONCE ONE Administration Doxycycline Hyclate 100 mg 04/22/24 13:40 04/22/24 13:56 Doxycycline Hycl 100 Mg Tablet PO 04/22/24 13:41 100 mg ONCE ONE Administration Sodium Chloride 1,000 mls @ 999 mls/hr 04/22/24 12:15 04/22/24 12:28 Sod Chlor 0.9% 1000ml Bag IV 04/22/24 13:15 999 mls/hr .Q1H1M ONE Administration Ceftriaxone Sodium 1 gm/ 50 mls @ 100 mls/hr 04/22/24 13:30 04/22/24 13:56 Sodium Chloride IV 05/02/24 13:29 100 mls/hr Q24H CARLOS Administration Iopamidol 75 ml 04/22/24 12:48 Iopamidol-370 (76%);100ml Bottle IV 04/22/24 12:49 ONCE ONE Ketorolac Tromethamine 15 mg 04/22/24 12:15 04/22/24 12:31 Ketorolac 30mg/Ml Vial IV 04/22/24 12:16 15 mg ONCE ONE Administration Metronidazole 500 mg 04/22/24 13:39 04/22/24 13:56 Metronidazole 500 Mg Tablet PO 04/22/24 13:40 500 mg ONCE ONE Administration Ondansetron HCl 4 mg 04/22/24 12:15 04/22/24 12:31 Ondansetron 4mg/2ml Vial IV 04/22/24 12:16 4 mg ONCE ONE Administration Sodium Chloride 10 ml 04/22/24 12:48 Sodium Chloride 0.9% 10ml Syr (Rad Only) IV 04/22/24 12:49 ONCE ONE ORDERS Category Date Time Status CT abdomen pelvis w con Stat Cat Scan 04/22/24 12:15 Completed CBC w/Auto Diff [Complete Blood Count Auto Diff] Stat Lab 04/22/24 12:07 Completed CMP [Comprehensive Metabolic Panel] Stat Lab 04/22/24 12:07 Completed HCG Qualitative, Serum Stat Lab 04/22/24 12:07 Completed Lactic Acid Stat Lab 04/22/24 12:07 Completed Lipase Stat Lab 04/22/24 12:07 Completed Magnesium Stat Lab 04/22/24 12:07 Completed UA [Urinalysis and Microscopic] Stat Lab 04/22/24 12:32 Completed Urine Culture Stat Micro 04/22/24 12:32 Received Medical Decision Narrative: In summary patient is a 39-year-old female who presents to the emergency department for evaluation of acute abdominal pain. Patient is hemodynamically stable upon arrival, afebrile. Physical exam is remarkable for diffuse abdominal tenderness but left greater than right without rebound or guarding or rigidity. Bowel sounds normal active.. Differential diagnosis includes UTI versus kidney stone versus diverticulitis versus colitis versus constipation versus infection etc. Initial workup will be conducted with hematologic labs CT scan abdomen pelvis urinalysis.. Initial interventions include crystalloid bolus Toradol Tylenol Zofran. Initial workup reviewed by me shows her hematologic labs are nonactionable however her urinalysis is positive for trace ketones 2+ blood nitrite negative leukocyte Estrace positive with microscopic exam showing occasional red blood cells 5-10 whites 5-10 epithelial cells trace bacteria and +1 trichomonas. My informal interpretation of her CT scan abdomen pelvis shows no acute processes prior to radiology read. Upon repeat evaluation patient had some improvement in her discomfort after initial interventions. She is tolerating oral intake. Given this patient is appropriate for discharge at this time and will be discharged with a prescription for 14 days of Flagyl, and doxycycline, 10 days of Omnicef and received a dose of IV Rocephin in the emergency department. First doses of her oral antibiotics were given in the ER. Patient needs to follow-up with [facility] next week and was personally told about the follow-up needed. Salazar: I personally evaluated the patient. She is resting comfortably at this time and is reassured by the workup so far. I discussed CT results which are reassuring. Her labs are concerning for urinary tract infection as well as possible STI with presence of trichomonas. On further discussion with her, she denies dyspareunia with most recent sexual encounter 2 weeks ago. She states she has had trichomonas in the past. She states she has not had any recent STD testing. She states her abdominal pain was new in the last 24 to 48 hours which is reassuring against PID but does not completely rule it out. She also has absent dyspareunia which again is reassuring against PID but does not rule it out. Given this and her symptoms as well as the presence of trichomonas, I believe it is most beneficial to treat the patient for pelvic inflammatory disease as well as urinary tract infection with possible pyelonephritis. Her labs and imaging are overall reassuring enough I believe this can be done on an outpatient basis. She received IV Rocephin in the ER. She is being prescribed cefdinir, doxycycline, and metronidazole for treatment of the listed concerns. She was also instructed to follow-up with OB for reevaluation and to notify any sexual partners of potential contact. She is appropriate for discharge. I was consulted by the JENIFER, and we discussed the complexity of problems being addressed. I approved the treatment and management plan for this patient's care in the emergency department, thus performing a substantial portion of the medical decision making. Teddy Salazar MD Critical Care <GRACIELA Morgan - Last Filed: 04/22/24 14:13> Critical Care Time Critical Care Time: No
--- NOTE | 2024-04-22 12:15 | CT_ITS ---
FINAL REPORT TECHNIQUE: This study was performed with techniques to keep radiation doses as low as reasonably achievable (ALARA). Individualized dose reduction techniques using automated exposure control or adjustment of mA and/or kV according to the patient's size were employed. CLINICAL HISTORY: Left-sided abdominal pain COMPARISON: None FINDINGS: CT ABDOMEN AND PELVIS WITH CONTRAST TECHNIQUE: IV contrast enhanced exam COMPARISON: None . FINDINGS: ABDOMEN: The solid organs and gallbladder are unremarkable in appearance. The bowel is normal. The appendix is not visualized, but no secondary signs of appendicitis are seen. PELVIS: The uterus is retroverted. The ovaries are unremarkable. No free fluid is identified in the pelvis. IMPRESSION: No acute abdominal or pelvic process is identified. This study was performed using automated techniques to achieve radiation exposure as low as reasonably achievable Reviewed, Interpreted and Dictated by Rj Esquivel MD Transcribed by Prabha Atkins Authenticated and [facility]
[2024-04-22 12:26] LABS: Albumin Level 4.7 g/dl (3.5-5.0); Chloride 106 mmol/L (98-107)
[2024-04-22 12:27] LABS: Potassium 4.1 mmoL/L (3.5-5.1); Sodium 134 mmol/L (136-145)
[2024-04-22] MEDS: 0.9 % SODIUM CHLORIDE 1000ML 1,000 ML 999 ML IV (12:28)
[2024-04-22] MEDS: ACETAMINOPHEN 1,000MG/100ML VIAL 1000 MG IV (12:28)
[2024-04-22 12:29] LABS: Alanine Aminotransferase 21 U/L (12-78); Anion Gap 8.1 mEq/L (5-15); Aspartate Amino Transferase 29 U/L (14-36); Blood Urea Nitrogen 12 mg/dl (7-17); Carbon Dioxide 24 mmol/L (22.0-30.0); Creatinine Clearance Estimated 139 mL/min (50-200); Estimated Glomerular Filt Rate 93 ml/min (>60); GFR (African American) 112 ML/MIN (>60)
[2024-04-22 12:30] VITALS: BP 120/83; PULSE 90; O2SAT 100
[2024-04-22 12:30] LABS: Albumin/Globulin Ratio 1.5 (1.1-1.8); Alkaline Phosphatase 75 U/L (38-126); Bilirubin,Total 0.4 mg/dl (0.2-1.3); Calcium 9.3 mg/dl (8.4-10.2); Globulin 3.2 g/dL (1.3-3.2); Glucose 125 mg/dl (74-100); Lipase 29 U/L (23-300); Total Protein,Serum 7.9 g/dl (6.3-8.2)
[2024-04-22] MEDS: KETOROLAC 30MG/ML VIAL 15 MG IV (12:31)
[2024-04-22] MEDS: ONDANSETRON 4MG/2ML VIAL 4 MG IV (12:31)
[2024-04-22 12:32] LABS: Lactic Acid 1.2 mmol/L (0.7-2.1)
[2024-04-22 12:34] LABS: HCG Qualitative, Serum Negative (Negative)
[2024-04-22 12:35] VITALS: BP 136/84; PULSE 91; O2SAT 100
[2024-04-22 12:39] LABS: Microscopic, Urine URINE MICROSCOPIC (MICROSCOPIC)
[2024-04-22 12:40] LABS: Appearance,Urine SL CLOUDY (Clear); Bilirubin,Urine Negative (Negative); Blood, Urine 2+ (Negative); Color,Urine YELLOW (Yellow); Glucose,Urine (UA) Negative (Negative); Ketones,Urine TRACE (Negative); Leukocyte Esterase,Urine 3+ (Negative); Nitrate,Urine Negative (Negative); Protein,Urine Negative (Negative); Urobilinogen,Urine 0.2 EU/dl (0.2)
[2024-04-22 12:43] LABS: Hematocrit 36.6 % (37.0-47.0); Hemoglobin 12.8 g/dL (12.2-16.2); Mean Corpuscular Hemoglobin 31.8 pg (27.0-31.2); Red Blood Count 4.02 M/mm3 (4.20-5.40)
[2024-04-22 12:44] LABS: Basophils % 0.2 % (0.1-2.0); Eosinophils # 0.1 K/mm3 (0.0-0.4); Eosinophils % 1.1 % (0.1-12.0); Lymphocytes # 1.5 K/mm3 (0.7-4.5); Lymphocytes % 16.6 % (10-50); Monocytes # 0.3 K/mm3 (0.1-1.0); Monocytes % 3.8 % (1.7-9.3); Platelet Count 347 K/mm3 (142-424); Red Cell Distribution Width 11.6 % (11.5-17.5)
--- NOTE | 2024-04-22 12:48 | PC.NURSE ---
pt returned from radiology
[2024-04-22 12:55] LABS: Bacteria,Urine Trace /lpf; RBC,Urine Occasional #/hpf (0-3)
[2024-04-22 12:56] LABS: Trichomonas,Urine 1+ /lpf
[2024-04-22 13:00] VITALS: BP 117/73; PULSE 78; O2SAT 98
[2024-04-22] MEDS: metroNIDAZOLE 500 MG TABLET PO (13:56)
[2024-04-22] MEDS: DOXYCYCLINE HYCL 100 MG TABLET PO (13:56)
[2024-04-22] MEDS: CEFTRIAXONE 1 GM 1 GM in 0.9 % SODIUM CHLORIDE 50 ML IV (13:56)
[2024-04-22 14:00] VITALS: BP 114/79; PULSE 50; O2SAT 89
[2024-04-22 14:05] VITALS: BP 114/79; PULSE 79; RESP 18; TEMP 36.7; O2SAT 99
[2024-04-23 20:08] LABS: Neisseria gonorrhoeae, NAA Negative (Negative)
--- NOTE | 2024-04-24 16:30 | PC.NURSE ---
discussed urine culture with , dc antibiotics appropriate
== END 2024-04-22 14:22 | disposition home or self-care (01) ==
PROVIDERS: Physician Assistant; Emergency Provider Emergency Medicine
DX: R10.9 Unspecified abdominal pain (principal); N39.0 Urinary tract infection, site not specified; A59.9 Trichomoniasis, unspecified
CPT/HCPCS: 74177; 80053; 81001; 83605; 83690; 83735; 84703; 85025; 87086; 87088; 87186; 87491; 87591; 96374; 96375; 99285; J0131; J0696; J1885; J2405; J7030

== ENCOUNTER 2024-06-02 17:40 | Emergency (ER) | payer SELFPAY ==
[2024-06-02 17:43] VITALS: BP 163/99; PULSE 103; RESP 18; TEMP 36.8; O2SAT 99; BMI 29.7
--- NOTE | 2024-06-02 18:36 | CT_ITS ---
PROCEDURE INFORMATION: Exam: CT Abdomen And Pelvis With Contrast Exam date and time: 06/02/2024 7:22 PM Age: 39 years old Clinical indication: Abdominal pain; Generalized; Additional info: Llq abd ttp, no bm in 5 days, not passing gas TECHNIQUE: Imaging protocol: Computed tomography of the abdomen and pelvis with contrast. Radiation optimization: All CT scans at this facility use at least one of these dose optimization techniques: automated exposure control; mA and/or kV adjustment per patient size (includes targeted exams where dose is matched to clinical indication); or iterative reconstruction. Contrast material: ISOVUE; Contrast volume: 75 ml; Contrast route: IV; COMPARISON: CT ABDOMEN PELVIS W CON 04/22/2024 12:44 PM FINDINGS: Lungs: Calcified granulomas in the left lower lobe. Liver: Normal. Gallbladder and biliary ducts: Normal. Pancreas: Normal. Spleen: Normal. Adrenal glands: Normal. No mass. Kidneys and ureters: Normal. Stomach and bowel: Moderate amount of stool throughout the colon, suggesting constipation. No obstruction. Appendix: No evidence of appendicitis. Intraperitoneal space: Small amount of pelvic free fluid, likely physiologic Vasculature: Unremarkable. No abdominal aortic aneurysm. Lymph nodes: Unremarkable. No enlarged lymph nodes. Urinary bladder: Unremarkable as visualized. Reproductive: Bilateral tubal ligation clips. Bones/joints: Mild dextroscoliosis of the lumbar spine. Soft tissues: Small fat containing umbilical hernia. IMPRESSION: 1. Moderate amount of stool throughout the colon, suggesting constipation. No obstruction. 2. Other (less critical/noncritical/incidental) findings as above; please refer to the body of report for further details.
[2024-06-02 18:39] VITALS: BP 154/101; PULSE 92; O2SAT 98
--- NOTE | 2024-06-02 18:41 | ED_ITS ---
Discharge Plan Disposition Patient Disposition: Home, Self-Care Condition: Good Prescriptions Prescriptions: No Action lamotrigine 200 mg tablet 200 mg PO DAILY Qty: 90 1RF venlafaxine 150 mg capsule,extended release 24hr 150 mg PO DAILY Qty: 90 1RF metronidazole 500 mg tablet 500 mg PO BID 14 Days Qty: 28 0RF cefdinir 300 mg capsule 300 mg PO BID 10 Days Qty: 20 0RF doxycycline hyclate 100 mg capsule 100 mg PO BID 14 Days Qty: 28 0RF Referrals Follow up/Referrals: Provider,Referral, MD [Primary Care Provider] - See instructions Activity Restrictions/Add. Instructions Additional Instructions/Restrictions: PLEASE FOLLOW THESE INSTRUCTIONS. These instructions are different that the instructions on the MiraLAX bottle. This WILL cause you to have diarrhea. Mix the ENTIRE bottle of MiraLAX (either 238 or 255 grams) into 64 ounces of Gatorade or another clear liquid, EXCEPT WATER. DO NOT MIX IN WATER! Clear liquids include: Gatorade, other sports drink, clear juices (apple, white grape, or cranberry, etc. NO PULP), lemonade, and Crystal Light. Shake until MiraLAX is dissolved. Start taking the MiraLAX bowel clean out solution at noon or as early as you can. Do not take later then 6:00 p.m., or you will not get any sleep. Drink one 8 ounce glass of the MiraLAX solution every 30-60 minutes until the solution is gone. This will take approximately 4-8 hours to drink. It is necessary to drink all of the solution to make sure that your colon is clean. If you become nauseated or feel full, stop drinking for at least 30 minutes. Then resume the MiraLAX solution using smaller amounts (4-6 ounces) every 45-60 minutes. It will be necessary to drink all of the solutions to make sure that your colon is clean. The stool should be liquid and clear enough to see through. The color of the stool may be yellow, green or even blue depending on what liquid you have been drinking. It is important to continue to drink clear liquids even after you have finished the MiraLAX to continue to flush your colon and ensure that you are staying well hydrated. You will need to be on a clear liquid diet ONLY the entire day of the bowel cleanout. You may have the following: Jell-O, popsicles, broth, Gatorade, PowerAde, clear fruit juices (apple, white grape or cranberry), Paulino-Aid (any flavor), Crystal Light, or water. Follow-up with your primary care provider regarding the granulomas incidentally noted on your CT scan. Stay well-hydrated. Return if worsening pain or fevers. You may take Tylenol 1000 mg and ibuprofen 800 mg every 6 hours as needed for pain Clinical Impressions Clinical Impression: Abdominal pain, Constipation Instructions Patient Instructions: DI for Acute Abdominal Pain Print Language Print Language: Spanish Discharge ED Provider: Burke Goncalves Adult HPI General Chief complaint: Abdominal Pain Stated complaint: pain in left part of stomach Time Seen by Provider: 06/02/24 18:18 Mode of Arrival: Ambulatory Limitations: No Limitations Description of Symptoms (Recalled from ER Triage Doc. by RN): Patient states she was having LLQ pain before . States she was diagnosed with Pelvic Inflammatory Disease secondary to an STI. States she was also diagnosed with a UTI. States it has continued to hurt. States today, she has been constipated and unable to have a bowel movement. States last BM 5-days ago. Patient states she has a history of opiate use. States she takes a quarter of a suboxone every 3 days, but states this is not prescribed because she doesn't have insurance. Requests no narcotic pain medication. History of Present Illness HPI narrative: Patient is a 39-year-old female who has a history of anxiety and depression. She is presenting today for abdominal pain. She reports that that has been chronic in nature, left upper and lower quadrants. Reports that it is been a dull aching pain. She denies any dysuria, hematuria, vaginal discharge, vaginal burning. Denies any fevers, vomiting. She does report constipation and has not had a bowel movement in 4 days. She thinks that she is still passing gas. She reports that the pain has not gotten better since she was diagnosed with trichomoniasis and started on antibiotics. Per my review of the EMR, she did receive all the appropriate antibiotics for treatment for that. Related Data Previous Rx's ?Medication ?Instructions ?Recorded lamotrigine 200 mg tablet 200 mg PO DAILY #90 tabs 03/05/24 venlafaxine 150 mg 150 mg PO DAILY #90 caps 03/05/24 capsule,extended release 24 hr cefdinir 300 mg capsule 300 mg PO BID 10 days #20 caps 04/22/24 doxycycline hyclate 100 mg capsule 100 mg PO BID 14 days #28 caps 04/22/24 metronidazole 500 mg tablet 500 mg PO BID 14 days #28 tabs 04/22/24 Allergies Allergy/AdvReac Type Severity Reaction Status Date / Time No Known Allergies Allergy Verified 06/02/24 17:49 [facility] Disclaimer: The information contained in this section may have been updated after the patient was seen, as this information can be updated by other users. Medical History Anxiety Depression Grief at loss of child Surgical History History of appendectomy History of tubal ligation Social History (Updated 12/29/22 @ 08:38 by ANGEL Jacobo) Smoking Status: Current every day smoker tobacco type: e-cigarettes second hand exposure: Yes alcohol intake: never counseling given: No substance use type: denies use current occupational status: employed Travel in the last 8 weeks: None adopted: No caregiver/support person: No foster care: No household members: family housing: house lives independently: Yes marital status: single number of children: 3 number of grandchildren: 0 education level: high school Hx Recent Travel: No sexually active: No caffeine: Yes physical activity: none jaycob/druze: None special jaycob needs: No working smoke detector in home: Yes fire extinguisher in home: No carbon monox detector in home: No firearms in home: No do you feel safe at home: Yes victim of physical abuse: No victim of emotional abuse: No victim of sexual abuse: No would you like helpful sources: No Have you lived/traveled outside [place] in past 30 days?: No Contact w/someone who lives/traveled outside [place] past 30 days?: No Exposure to someone with infectious disease in past 14 days?: No Do you have a fever (greater than 100.4 F or 38 C)?: No Have you tested positive for COVID-19: No Exposed to someone with COVID-19 in past 14 days?: No Do you have a sore throat?: No Do you have a cough?: No Do you have any weakness?: No Do you have any diarrhea?: No Are you experiencing any unusual bleeding?: No Do you have any muscle aches/pain?: No Do you have any abdominal pain?: No Are you experiencing loss of taste or smell?: No Other Medical History Have you received the Flu Vaccine for this season: No Have you received the Pneumonia Vaccine: No ROS Obtained: Yes All systems reviewed & no additional complaints except as documented Physical Exam General General appearance: alert and in no apparent distress Head Head exam: atraumatic and normocephalic Eye Eye exam: Present PERRL and EOMI ENT ENT exam: Present normal oropharynx Neck Neck exam: Present full ROM and trachea midline Chest Chest inspection: Present symmetric chest wall rise Respiratory Respiratory exam: Present normal lung sounds bilaterally; Absent stridor Cardiovascular Cardiovascular exam: Present regular rate and normal rhythm Abdominal Exam Abdominal exam: Present soft and tenderness (Left upper and left lower quadrant); Absent distention Extremities Exam Extremities exam: Present full ROM Neurological Exam Neurological exam: Present alert and oriented X3 Psychiatric Psychiatric exam: Present normal mood Skin Skin exam: Present warm and dry Medical Decision Making Medical Records Screening: Per USPSTF and CDC recommendations, given the prevalence of disease in our region, it is our hospital?s policy to screen for HIV and viral Hepatitis for all patients aged 18 and over and those with ongoing risk factors. Myron Inquiry Pt receiving controlled substance: No Vital Signs: 06/02/24 17:43 06/02/24 18:39 06/02/24 19:00 Temperature 98.2 F Temperature Source Oral Pulse Rate 92 H 91 H Pulse Rate [Radial] 103 H Respiratory Rate 18 Blood Pressure 154/101 H 128/77 Blood Pressure [R Arm] 163/99 H Blood Pressure Mean 96 Blood Pressure Mean [R Arm] 120 Blood Pressure Source Blood Pressure Source [R Arm] Automatic Cuff Blood Pressure Position 02 Sat by Pulse Oximetry 99 98 99 Oxygen Delivery Method Room Air Room Air 06/02/24 21:53 Temperature 97.8 F Temperature Source Oral Pulse Rate 70 Pulse Rate [Radial] Respiratory Rate 16 Blood Pressure 110/70 Blood Pressure [R Arm] Blood Pressure Mean Blood Pressure Mean [R Arm] Blood Pressure Source Automatic Cuff Blood Pressure Source [R Arm] Blood Pressure Position Sitting 02 Sat by Pulse Oximetry Oxygen Delivery Method Room Air Lab Data Lab Results 06/02/24 18:30: WBC 8.4, RBC 4.01 L, Hgb 12.6, Hct 37.2, MCV 92.8, MCH 31.4 H, MCHC 33.9, RDW 11.9, Plt Count 344, MPV 9.4, Neut % (Auto) 59.9, Lymph % (Auto) 31.7, [place] % (Auto) 5.6, Eos % (Auto) 2.1, Baso % (Auto) 0.5, Neut # (Auto) 5.1, Lymph # (Auto) 2.7, [place] # (Auto) 0.5, Eos # (Auto) 0.2, Baso # (Auto) 0.0, Sodium 139, Potassium 3.7, Chloride 103, Carbon Dioxide 29, Anion Gap 10.7, BUN 17, Creatinine 0.90, Estimated Creat Clear 107, Estimated GFR 69, Est GFR ( Amer) 84, Glucose 91, Calcium 9.3, Total Bilirubin 0.1 L, AST 30, ALT 27, Alkaline Phosphatase 66, Total Protein 7.4, Albumin 4.8, Globulin 2.6, Albumin/Globulin Ratio 1.8, Lipase 35, Serum HCG, Qual Negative 06/02/24 19:35: Lactate 1.0 06/02/24 20:12: Urine Color Yellow, Urine Appearance Clear, Urine pH 6.5, Ur Specific [place] <= 1.005, Urine Protein Negative, Urine Glucose (UA) Negative, Urine Ketones Negative, Urine Blood Negative, Urine Nitrate Negative, Urine Bilirubin Negative, Urine Urobilinogen 0.2, Ur Leukocyte Esterase Trace, Urine RBC None, Urine WBC 3-5, Ur Squamous Epith Cells 10-20, Urine Bacteria Trace, Urine HCG, Qual Negative 06/02/24 18:30 06/02/24 18:30 Orders (Tests/Meds): ED MEDICATIONS Discontinued Medications Generic Name Dose Route Start Last Admin Trade Name Freq PRN Reason Stop Dose Admin Acetaminophen 1,000 mg 06/02/24 18:36 06/02/24 18:42 Acetaminophen 500mg Tab PO 06/02/24 18:37 1,000 mg ONCE ONE Administration Lactated Ringer's 1,000 mls @ 999 mls/hr 06/02/24 18:39 06/02/24 18:42 Lactated Ringer's 1000 Ml Bag IV 06/02/24 19:39 999 mls/hr .Q1H1M ONE Administration Iopamidol 75 ml 06/02/24 19:29 06/02/24 19:29 Iopamidol-370 (76%);100ml Bottle IV 06/02/24 19:30 75 ml ONCE ONE Administration Ketorolac Tromethamine 15 mg 06/02/24 18:36 06/02/24 18:42 Ketorolac 30mg/Ml Vial IV 06/02/24 18:37 15 mg ONCE ONE Administration Sodium Chloride 10 ml 06/02/24 19:29 06/02/24 19:29 Sodium Chloride 0.9% 10ml Syr (Rad Only) IV 06/02/24 19:30 10 ml ONCE ONE Administration ORDERS Category Date Time Status CT abdomen pelvis w con Stat Cat Scan 06/02/24 18:36 Completed Complete Blood Count Auto Diff Stat Lab 06/02/24 18:30 Completed Comprehensive Metabolic Panel Stat Lab 06/02/24 18:30 Completed HCG Qualitative, Serum Stat Lab 06/02/24 18:30 Completed Lactic Acid Stat Lab 06/02/24 19:35 Completed Lipase Stat Lab 06/02/24 18:30 Completed Urinalysis and Microscopic Stat Lab 06/02/24 20:12 Completed Urine , HCG Qual. Stat Lab 06/02/24 20:12 Completed Medical Decision Narrative: In summary, this 39-year-old female presents to the emergency department today with abdominal pain, constipation. On initial evaluation patient is afebrile, hemodynamically stable and in no acute distress. On exam is warm and well- perfused and full pulses in all extremities. Her abdomen is soft, nondistended, no peritoneal signs. Mild reproducible left upper quadrant and left lower quadrant tenderness. I reviewed suspect constipation given she has not pooped in 4 to 5 days, but will obtain cross-sectional imaging to rule out diverticulitis or bowel obstruction. She has had tube ligation previously.. Differential diagnosis includes but is not limited to constipation, intra- abdominal abscess, diverticulitis, bowel obstruction, constipation, UTI. Based on these concerns, I ordered CBC, CMP, lipase, lactate, urinalysis, CT abdomen. I reviewed prior records including as above in HPI. Patient received Toradol for treatment. Labs personally reviewed demonstrate no leukocytosis no evidence of anemia. No significant electrolyte derangement. Lipase within normal limits. test negative.. CT imaging personally interpreted demonstrate no evidence of bowel obstruction. Moderate stool throughout the colon, will send with bowel cleanout. Patient made aware of incidental findings of granulomas in the lung. On reassessment patient reports some improvement in her pain. She is tolerating oral intake here without difficulty. Will send with bowel cleanout at home. Strict precautions are discussed. Of note, social determinants of health include poor health literacy, does not have a current PCP. At this time it was felt that the patient was safe to be discharged home. The patient was in agreement with this plan. The patient was given strict return precautions prior to being discharged from the emergency department. Critical Care Critical Care Time Critical Care Time: No
[2024-06-02] MEDS: ACETAMINOPHEN 500MG TAB 1000 MG PO (18:42)
[2024-06-02] MEDS: KETOROLAC 30MG/ML VIAL 15 MG IV (18:42)
[2024-06-02] MEDS: LACTATED RINGERS 1000ML 1,000 ML 999 ML IV (18:42)
[2024-06-02 18:44] LABS: Basophils % 0.5 % (0.1-2.0); Eosinophils # 0.2 K/mm3 (0.0-0.4); Eosinophils % 2.1 % (0.1-12.0); Hematocrit 37.2 % (37.0-47.0); Hemoglobin 12.6 g/dL (12.2-16.2); Lymphocytes # 2.7 K/mm3 (0.7-4.5); Lymphocytes % 31.7 % (10-50); Mean Corpuscular HGB Conc 33.9 g/dL (31.8-35.4); Mean Corpuscular Hemoglobin 31.4 pg (27.0-31.2); Mean Corpuscular Volume 92.8 fl (81-99); Mean Platelet Volume 9.4 fl (7.4-10.4); Monocytes # 0.5 K/mm3 (0.1-1.0); Monocytes % 5.6 % (1.7-9.3); Neutrophils # 5.1 K/mm3 (1.8-7.8); Neutrophils % 59.9 % (37.0-80.0); Platelet Count 344 K/mm3 (142-424); Red Blood Count 4.01 M/mm3 (4.20-5.40); Red Cell Distribution Width 11.9 % (11.5-17.5); White Blood Count 8.4 K/mm3 (4.8-10.8)
[2024-06-02 18:52] LABS: Alanine Aminotransferase 27 U/L (12-78); Albumin Level 4.8 g/dl (3.5-5.0); Albumin/Globulin Ratio 1.8 (1.1-1.8); Alkaline Phosphatase 66 U/L (38-126); Anion Gap 10.7 mEq/L (5-15); Aspartate Amino Transferase 30 U/L (14-36); Bilirubin,Total 0.1 mg/dl (0.2-1.3); Blood Urea Nitrogen 17 mg/dl (7-17); Calcium 9.3 mg/dl (8.4-10.2); Carbon Dioxide 29 mmol/L (22.0-30.0); Chloride 103 mmol/L (98-107); Creatinine Clearance Estimated 107 mL/min (50-200); Estimated Glomerular Filt Rate 69 ml/min (>60); GFR (African American) 84 ML/MIN (>60); Globulin 2.6 g/dL (1.3-3.2); Glucose 91 mg/dl (74-100); Lipase 35 U/L (23-300); Potassium 3.7 mmoL/L (3.5-5.1); Sodium 139 mmol/L (136-145); Total Protein,Serum 7.4 g/dl (6.3-8.2)
[2024-06-02 18:55] LABS: HCG Qualitative, Serum Negative (Negative)
[2024-06-02 19:00] VITALS: BP 128/77; PULSE 91; O2SAT 99
--- NOTE | 2024-06-02 19:28 | PC.NURSE ---
Warm blanket given. no complaints at this time.
--- NOTE | 2024-06-02 19:28 | PC.NURSE ---
Warm blanket given. no complaints voiced
[2024-06-02] MEDS: SODIUM CHLORIDE 0.9% 10ML SYR (RAD ONLY) 10 ML IV (19:29)
[2024-06-02] MEDS: IOPAMIDOL-370 (76%);100ML BOTTLE 75 ML IV (19:29)
--- NOTE | 2024-06-02 20:15 | PC.NURSE ---
Assisted patient to the restroom for a urine sample, patient was ambulatory on her own accord, patient provided sample which was collected and sent to lab. Patient also provided water.
[2024-06-02 20:17] LABS: Microscopic, Urine URINE MICROSCOPIC (MICROSCOPIC)
[2024-06-02 20:19] LABS: Appearance,Urine CLEAR (Clear); Bilirubin,Urine Negative (Negative); Blood, Urine Negative (Negative); Color,Urine YELLOW (Yellow); Glucose,Urine (UA) Negative (Negative); Ketones,Urine Negative (Negative); Leukocyte Esterase,Urine TRACE (Negative); Nitrate,Urine Negative (Negative); PH,Urine 6.5 (5.0-8.5); Protein,Urine Negative (Negative); Specific Gravity, Urine <= 1.005 (1.005-1.030); Urobilinogen,Urine 0.2 EU/dl (0.2)
[2024-06-02 20:21] LABS: Urine Pregnancy, HCG Qual. Negative (Negative)
[2024-06-02 20:36] LABS: Bacteria,Urine Trace /lpf
--- NOTE | 2024-06-02 20:49 | PC.NURSE ---
Patient give an update
[2024-06-02 21:53] VITALS: BP 110/70; PULSE 70; RESP 16; TEMP 36.6; O2SAT 98
== END 2024-06-02 22:00 | disposition home or self-care (01) ==
PROVIDERS: Emergency Provider Emergency Medicine
DX: R10.32 Left lower quadrant pain (principal); R10.12 Left upper quadrant pain; K59.00 Constipation, unspecified; F17.290 Nicotine dependence, other tobacco product, uncomplicated
CPT/HCPCS: 36415; 74177; 80053; 81001; 81025; 83605; 83690; 84703; 85025; 96361; 96374; 99285; J1885; J7120; Q9967